=== PATIENT | female | born 1985 | race Caucasian/White ===

== ENCOUNTER 2024-10-14 04:40 | Emergency (ER) | payer MEDICAID ==
[~2024-10-14] VITALS: Ht 157.5 cm; Wt 61.4 kg
[2024-10-14 07:07] VITALS: BP 98/43; PULSE 88; RESP 16; TEMP 98.2; O2SAT 97
== END 2024-10-14 14:39 | disposition left against medical advice (07) ==
LOC: EMS 04:42
DX: G89.4 Chronic pain syndrome (principal); G83.9 Paralytic syndrome, unspecified
CPT/HCPCS: 99283; Z7502

== ENCOUNTER 2024-11-07 05:17 | Emergency (ER) | payer MEDICAID ==
[~2024-11-07] VITALS: Ht 162.6 cm; Wt 61.4 kg
[2024-11-07 05:30] VITALS: TEMP 98.4
[2024-11-07 06:38] VITALS: BP 122/67; PULSE 95; RESP 20; O2SAT 98
== END 2024-11-07 07:35 | disposition left against medical advice (07) ==
LOC: EMS 05:17
DX: G89.4 Chronic pain syndrome (principal)
CPT/HCPCS: 99283; Z7502